=== PATIENT | female | born 1960 | race American Indian/Alaskan Native ===

== ENCOUNTER 2020-10-05 08:06 | Outpatient (CLI) | payer OTHER ==
--- NOTE | 2020-10-05 11:03 | Mammography Report ---
DIGITAL DIAGNOSTIC MAMMOGRAM WITH CAD CONVENTIONAL, 10/05/2020 CLINICAL INFORMATION / INDICATION: Post ultrasound-guided biopsy TECHNIQUE: Digital left mammographic imaging was performed. This examination was interpreted with the benefit of Computer-aided Detection analysis. COMPARISON: 12/30/2019 FINDINGS: Breast Density: The breasts are heterogeneously dense, which may obscure small masses. Biopsy clip is in the general area of the ultrasound lesion. There was no previous mammographic corre late. IMPRESSION: Appropriate clip placement Follow up recommendation: Per biopsy results Post biopsy imaging. A "normal" or negative report should not discourage follow up or biopsy of a clinically significant f inding. A written summary of these findings will be mailed to the patient. The patient will be entered into a mammography reporting system which will generate a reminder letter for the patient's next appointmen t at the appropriate interval. According to the [employer], yearly mammograms are recommended starting at age 40 and continuing as long as a woman is in good health. Breast MRI is recommended for women with an jacey roximately 20-25% or greater lifetime risk of breast cancer, including women with a strong family his tory of breast or ovarian cancer and women who have been treated for Hodgkin's disease. Signer Name: Rigo Madrigal MD Signed: 10/05/2020 10:58 AM Workstation Name: [id number]
--- NOTE | 2020-10-05 15:13 | Ultrasound Report ---
ULTRASOUND-GUIDED LEFT BREAST BIOPSY INDICATION: Hypoechoic areas on outside or sound COMPARISON: Outside left breast ultrasound 09/01/2020; images provided on CD display very poorly CONSENT: Procedure was discussed at length in advance with the patient. Possible risks and benefits w ere discussed including the possibility of bleeding. Postbiopsy care was discussed. Opportunity for q uestions was provided. Patient is not on anticoagulant therapy and reports no pertinent allergies. PROCEDURE: Timeout was performed. Personal examination of the area in question was performed. There a re multiple small complicated cysts and small simple cysts in the upper outer quadrant thought to rep resent many of the areas in question on previous ultrasound. A benign-appearing intramammary node is seen in the axillary tail. One area of mildly more interest with a question of shadowing is identifie d at 2:00, 2 cm from the nipple, which is probably the area in question on the outside study though a gain the images are difficult to compare as above. This 2:00 area was selected for biopsy and others were felt not needing biopsy a similar evaluation. This was discussed with the patient. Using aseptic technique and under local anesthesia, with real-time sonographic guidance, the area of interest at 2:00 was biopsied. Multiple specimens were obtained with an Achieve 14-gauge biopsy devic e and sent to pathology for analysis. A metallic clip was placed at the end of the procedure. Site wa s secured and the patient was sent for post biopsy mammogram. Patient tolerated the procedure well an d left the department in good condition. IMPRESSION: Successful ultrasound-guided left breast biopsy of a questionable lesion at 2:00. Other small complicated cysts in the upper outer quadrant are felt very likely benign but I would suggest 6 month follow-up ultrasound. Signer Name: Rigo Madrigal MD Signed: 10/05/2020 3:09 PM Workstation Name: [id number]
== END 2020-10-05 08:07 | disposition home or self-care (01) ==
LOC: SPVWC 08:06
PROVIDERS: ATTEND Surgery
DX: N63.21 Unspecified lump in the left breast, upper outer quadrant (principal); R92.8 Other abnormal and inconclusive findings on diagnostic imaging of breast; N60.02 Solitary cyst of left breast; N64.89 Other specified disorders of breast
CPT/HCPCS: 88305; 88312; 88342

== ENCOUNTER 2021-01-17 08:38 | Outpatient (CLI) | payer OTHER ==
--- NOTE | 2021-01-17 09:56 | Mammography Report ---
DIGITAL SCREENING MAMMOGRAM WITH CAD, 01/17/2021 CLINICAL INFORMATION / INDICATION: Routine screening mammography. TECHNIQUE: Digital bilateral 2D mammography was obtained in the craniocaudal and mediolateral obliqu e projections. This examination was interpreted with the benefit of Computer-Aided Detection analysis . COMPARISON: 10/05/2020, 09/01/2020, 02/13/2018 FINDINGS: Breast Density: The breasts are heterogeneously dense, which may obscure small masses. No dominant mass, suspicious calcifications, or architectural distortion in either breast. Biopsy clip is again noted in the left breast. IMPRESSION: No mammographic evidence of malignancy. Follow up recommendation: Routine yearly BI-RADS Category 2: Benign. A "normal" or negative report should not discourage follow up or biopsy of a clinically significant f inding. A written summary of these findings will be mailed to the patient. The patient will be entered into a mammography reporting system which will generate a reminder letter for the patient's next appointmen t at the appropriate interval. The [employer] recommends yearly mammograms starting at age 40 and continuing as l christopher as a woman is in good health. Breast MRI is recommended for women with an approximate 20-25% or greater lifetime risk of breast cancer, including women with a strong family history of breast or ova dereck cancer or who have been treated for Hodgkin's disease. Signer Name: Hollie Albarran MD Signed: 01/17/2021 9:51 AM Workstation Name: [id number]
== END 2021-01-17 08:39 | disposition home or self-care (01) ==
LOC: SPVWC 08:38
PROVIDERS: ATTEND Surgery
DX: Z12.31 Encounter for screening mammogram for malignant neoplasm of breast (principal)
CPT/HCPCS: 77067